=== PATIENT | female | born 1995 | race Caucasian/White ===

== ENCOUNTER → 2018-08-10 17:25 | Observation (INO) ==
[2018-08-10 12:58] LABS: Bilirubin,Urine Negative (Negative); Blood,Urine Negative (Negative); Clarity,Urine Clear (Clear); Color,Urine Dark Yellow (Yellow); Glucose,Urine (UA) Normal (Normal); Ketones,Urine 40 mg/dL (Negative); Leukocyte Esterase,Urine Negative (Negative); Nitrite,Urine Negative (Negative); Protein,Urine Negative (Neg-Trace); Specific Gravity,Urine 1.025 (1.010-1.025)
[2018-08-10 13:05] LABS: Amphetamine Screen,Urine Negative ng/mL (Cutoff=1000); Barbiturate Screen,Urine Negative ng/mL (Cutoff=200)
[2018-08-10 13:09] LABS: Benzodiazepines Screen,Urine Negative ng/mL (Cutoff=300); Cannabinoid Screen,Urine Positive ng/mL (Cutoff = 50); Cocaine Screen,Urine Negative ng/mL (Cutoff= 300); Opiate Screen,Urine Negative ng/mL (Cutoff=300); Phencyclidine Screen,Urine Negative ng/mL (Cutoff=25)
--- NOTE | 2018-08-10 13:54 | OB/GYN Progress Note ---
Date of Encounter: 08/10/18 Time of Encounter: 13:20 - Assessment and Plan (1) 33 weeks gestation of Current Visit: No Status: Acute (2) NST (non-stress test) reactive Current Visit: No Status: Acute (3) uterine contractions in third trimester, antepartum Current Visit: No Status: Acute SVE unchanged since last triage visit. Pt has already received celestone injections. UA positive for 40 ketones. Contractions have improved with IV hydration. Zofran given for nausea. Will PO challenge. Pt denies any diarrhea since arrival to triage. Will continue to monitor. If pt able to tolerate PO fluids and contractions continue to improve, anticiapte discharge home. Subjective - Subjective Interval history: 22 year-old presenting at 33w4d with c/o nausea, vomiting, diarrhea, and contractions. She was seen for contractions last week and received "a pill" to stop them. The pill did not work but she only dilated to 2cm and then stopped per pt report. She did receive 2 doses of celestone and was discharged home. Last evening she started feeling ill at about midnight with nausea and diarrhea. She then started vomiting at around 0900 this am and has been cramping ever since. She reports the cramps are in her lower back and feel like diarrhea cramps. She has not had any fluids since midnight. Her son was ill with vomiting 2 days ago. No leaking or bleeding. Good FM. Antepartum ROS: movement normal, contractions, no loss of fluid, no vaginal bleeding Objective - Exam FHR: category 1 FHR comments: 140 BPM and reactive Auscultation: bilateral: normal Abdomen: Present: soft, gravid Uterus: Absent: tenderness Cervical dilation: 2 per RN Cervix effacement: 80 station: -2 - Labs Labs: Abnormal lab results 40 mg/dL (Negative) H 08/10/18 12:25 2.0 mg/dL (Normal) H 08/10/18 12:25 U Marijuana (THC) Screen Positive ng/mL (Cutoff = 50) H 08/10/18 12:25
[~2018-08-10 17:25] MED LIST: Ondansetron 4 MG/2 ML VIAL IVP PRN; Ringers Solution, Lactated 1,000 ML IVC ONE; Ringers Solution, Lactated 1,000 ML ONE; Terbutaline 1 MG/ML VIAL SQ ONE
== END | disposition home or self-care (01) ==
LOC: 1NENULAB
PROVIDERS: ADMIT Registered Nurse; ATTEND Registered Nurse

== ENCOUNTER → 2018-09-02 22:27 | Observation (INO) ==
--- NOTE | 2018-09-02 22:24 | Discharge Summary ---
Date of Encounter: 09/02/18 Time of Encounter: 22:24 - Discharge Diagnosis (1) 36 weeks gestation of Priority: Primary Status: Acute Comments: admitted for observation (2) NST (non-stress test) reactive Priority: Secondary Status: Acute Comments: FHR 125 bpm moderate variability +15x15 accels no decels noted. irregular contractions. Cat. 1 tracing - Discharge Medications Allergies/Adverse Reactions: Allergy/AdvReac Type Severity Reaction Status Date / Time No Known Allergies Allergy Verified 09/02/18 19:00 Date of admission: 09/02/18 18:34 Discharging clinician: Ying Bustamante Anticipated date of discharge: 09/02/18 - Patient Status Disposition: Home, Self-Care Condition: Good Functional capacity at discharge: independent ambulation - Discharge Instructions Follow Up With: Yoly Deleon MD [Partnered Physician] - Additional Instructions: LABOR AND DELIVERY DISCHARGE INSTRUCTIONS Signs and Symptoms to be Reported to your Doctor Immediately: * Sudden gush, continuous or intermittent lead of fluid from vagina (note the time of gush and color of fluid) * Onset of bright red vaginal bleeding with or without pain (if you had a vaginal exam during this visit you may notice some dark red spotting. This is normal.) * Lower abdominal cramping or backache that is premenstrual-like feeling. * More than 6 contractions in one hour. * Burning during urination, having to urinate more frequently or pain in your mid-back. * A change in the baby's activity. This could be an increase or decrease in activity. * Severe headache which does not go away with tylenol. * Sudden swelling in the face, hands, arms and/or legs. * Upper abdominal pain - sometimes associated with heartburn or nausea and is not relieved by Maalox, Mylanta or Tums. * Dizziness or blurred vision or visual disturbances (seeing stars/lights). * Kick Counts One hour after a meal, lay down on one side in a quiet place. Count the number of opal the baby moves during an hour. If less than 6 movements, notify your physician. Diet: *Force fluids - 8-10 tall glasses of fluid per day. May include popsicles and jello. 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 Deleon. Patient reports good movement, denies LOF. Patient states she was dilated 4cm when she seen Dr. Deleon. After almost 4 hours of observation no cervical change was made. Patient educated on True verses false labor and pain interventions. Patient denies any questions or concerns. Time Attestation: Total time spent providing and/or coordinating discharge services: Time Spent: Less than 30 minutes Exam - Constitutional General appearance IM: A&O X 3, pleasant, answers questions appropriately - Respiratory Respiratory exam: Present: CTAB - Cardiovascular Cardiovascular exam IM: Present: RRR, +S1, +S2 - Other Additional findings: SVE per RN 4/70/-2 no cervical change after 2 hours. FHR 125 bpm moderate variability +15x15 accels no decels noted. contractions noted now irregular. Cat. 1 tracing
== END | disposition home or self-care (01) ==
LOC: 1NENULAB
PROVIDERS: ADMIT Advanced Practice Midwife; ATTEND Advanced Practice Midwife

== ENCOUNTER 2018-09-12 10:08 | Inpatient (IN) ==
[2018-09-12] MEDS ORDERED: Lidocaine 1% 20 ML MDV INFILT PRN (10:47)
[2018-09-12] MEDS ORDERED: Famotidine 20 MG/2 ML VIAL IVP PRN (10:47)
[2018-09-12] MEDS ORDERED: Naloxone 0.4 MG/ML INJ IVP PRN ×2 (10:47→15:22)
[2018-09-12] MEDS ORDERED: Ondansetron 4 MG/2 ML VIAL IVP PRN ×2 (10:47→15:22)
[2018-09-12] MEDS ORDERED: *HR* Nalbuphine 10 MG/ML AMPUL IVP PRN (10:47)
[2018-09-12] MEDS ORDERED: Metoclopramide 10 MG/2 ML VIAL IVP PRN (10:47)
[2018-09-12] MEDS ORDERED: Ringers Solution, Lactated 1,000 ML IVC SCH (11:00)
[2018-09-12] MEDS ORDERED: Oxytocin 20 units/ LR 1000 mL 20 UNIT/1,000 ML BAG IVC SCH ×2 (11:00→23:57)
[2018-09-12 13:25] LABS: Basophils % 0.2 %; Eosinophils # 0.1 K/mcL (0.0-0.6); Hemoglobin 9.7 g/dL (11.5-15.4); Immature Granulocytes % 0.4 % (0-4); Lymphocytes # 2.1 K/mcL (0.6-4.6); Lymphocytes % 22.2 %; Mean Corpuscular HGB Conc 32.3 g/dL (31.6-35.5); Mean Corpuscular Hemoglobin 24.8 pg (28.0-33.3); Mean Corpuscular Volume 76.7 fL (83.0-100.0); Mean Platelet Volume 11.1 fL (9.4-12.4); Monocytes # 0.5 K/mcL (0.0-1.3); Monocytes % 4.9 %; Neutrophils # 6.7 K/mcL (1.6-8.9); Platelet Count 221 K/mcL (140-400); Red Blood Count 3.91 M/mcL (3.82-4.97); Red Cell Distribution Width 14.3 % (11.5-14.5); Segmented Neutrophils % 71.3 %; White Blood Count 9.4 K/mcL (4.3-11.1)
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
[2018-09-12] MEDS ORDERED: Ropivacaine/PF 0.2% 20 ML VIAL EP ONE (15:22)
[2018-09-12] MEDS ORDERED: *HR* FentaNYL (PF) 100 MCG/2 ML VIAL EP ONE (15:22)
[2018-09-12] MEDS ORDERED: EPHEDrine 50 MG/ML VIAL IVP PRN (15:22)
[2018-09-12] MEDS ORDERED: Epidural Premix (fent/bupiv) 110 ML EP SCH (15:30)
[2018-09-12] MEDS ORDERED: Epidural Premix (fent/bupiv) 110 ML EP ONE (15:50)
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
[2018-09-12] MEDS ORDERED: Ringers Solution, Lactated 1,000 ML ONE (16:27)
--- NOTE | 2018-09-12 16:53 | Anesthesia Procedures ---
Date of Encounter: 09/12/18 Time of Encounter: 16:21 Procedures: Anesthesia - Epidural/Spinal Patient ID/Chart reviewed: Yes Patient examined: Yes OB Eval: : 2 OB Eval: Dilated at (cm): 1 OB Eval: Contractions: Non-stressed pattern Consent Obtained: Yes Supplemental Oxygen: None/Room Air Site Prep: Aseptic Technique, Sterile prep and drape, 0.5% Chlorhexidine/Alcohol Patient position: upright Local Anesthetic: Lidocaine 1% Amount of Local Anesthetic used: 2 Touhy Needle Gauge: 18 Touhy Needle Depth (cm): 7 Catheter Depth at Skin (cm): 12 Test Dose (1.5% Lido + Epi): Volume given (mls): 3 Test Dose Result: Negative Loading Dose: Other: 10ml from solution Loading Dose Administered: Thru Catheter Infusion Med: 0.125% Bupivacaine w/ 2 mcg/ml Fentanyl Infusion Rate (mls/hr): [address]: Tegaderm, Tape Interspace Used: L3-L4 Loss of Resistance (KHOA): Yes (saline) Blood: No CSF: Yes (with 25g purposeful ) Paresthesia: No Procedure: vss though out required small bolus of [place]arien total doses 150mcg., FHR stable per RN's
--- NOTE | 2018-09-12 17:17 | OB Labor Progress Note ---
Date of Encounter: 09/12/18 Time of Encounter: 17:16 Labor Progress Note - Subjective Subjective: Patient resting comfortably with epidural in place. - Cervix Cervix: 8/100/-1 - Heart Tones Heart Tones: FHR 120 bpm, moderate variability, +15x15 accels, early decels. - [place]: Q 2-3 1/2 min - Interventions Interventions: SVE - Plan Physician notified: Yes Physician notified details: Dr. Jones aware of SVE Plan: Continue Pitocin augmentation Anticipate
--- NOTE | 2018-09-12 20:47 | OB/GYN Procedure Note ---
Delivery - Delivery Date: 09/12/18 Provider: Haydee Thomas Delivery induction: none Delivery augmentation: pitocin Delivery monitor: external FHT, external uterine Anesthesia: epidural Quantitated Blood Loss: 100 - (s) A Delivery Date: 09/12/18 Delivery Time: 20:04 Presentation: vertex Position: IVANNA Route of delivery: Gender: Female Viability: Viable at 1 minute: 8 at 5 mins: 9 Specimens collected: cord blood Placenta: spontaneous Cord: 3 umbilical vessels - Repair Episiotomy: none Laceration Description: Perineal - 1st Degree - Complications Delivery complications: none Delivery comments: Called to room for patient feeling intense pressure. I was gowned and gloved with Guillermo Cisneros, PGY1, and together spontaneously delivered of viable female over first-degree perineal laceration, repaired with 3-0 Vicryl. Infant placed on maternal abdomen for drying and stimulation. Cord clamped and cut after pulsation ceased. Spontaneous delivery of intact placenta, EBL 100 mL's. No nuchal cord, shoulder dystocia, or meconium encountered. Mother and in kangaroo care for 2 hour recovery. - Disposition Mom disposition: stable in LDR [place] disposition: stable in LDR
[2018-09-12] MEDS ORDERED: Lanolin 7 G OINT...G. TP PRN (23:57)
[2018-09-12] MEDS ORDERED: Benzocaine/Menthol 56 GM AEROSOL SPRAY TP PRN (23:57)
[2018-09-12] MEDS ORDERED: Rho Immune Globulin 1,500 UNIT SYRINGE IM PRN (23:57)
[2018-09-12] MEDS ORDERED: Acetaminophen 325 MG TABLET PO PRN (23:57)
[2018-09-13] MEDS: Ibuprofen 600 MG TABLET PO PRN ×2 (00:25→08:05)
[2018-09-13 08:38] VITALS: BP 135/87
[2018-09-13] MEDS ORDERED: Prenatal Vit/FA 1 EACH TABLET PO SCH (09:00)
[2018-09-13 09:15] LABS: Basophils % 0.2 %; Eosinophils % 0.3 %; Hematocrit 29.5 % (35.3-44.9); Hemoglobin 9.1 g/dL (11.5-15.4); Immature Granulocytes % 0.4 % (0-4); Lymphocytes # 2.5 K/mcL (0.6-4.6); Lymphocytes % 19.7 %; Mean Corpuscular HGB Conc 30.8 g/dL (31.6-35.5); Mean Corpuscular Hemoglobin 23.7 pg (28.0-33.3); Mean Corpuscular Volume 76.8 fL (83.0-100.0); Mean Platelet Volume 11.3 fL (9.4-12.4); Monocytes # 0.6 K/mcL (0.0-1.3); Monocytes % 4.9 %; Neutrophils # 9.4 K/mcL (1.6-8.9); Platelet Count 178 K/mcL (140-400); Red Blood Count 3.84 M/mcL (3.82-4.97); Red Cell Distribution Width 14.3 % (11.5-14.5); Segmented Neutrophils % 74.5 %; White Blood Count 12.6 K/mcL (4.3-11.1)
--- NOTE | 2018-09-13 09:28 | Discharge Summary ---
Date of Encounter: 09/13/18 Time of Encounter: 09:25 - Discharge Diagnosis (1) Vaginal delivery Priority: Primary Status: Acute Comments: Continue routine care discharge home today follow up with Dr. Calderon in 4-6 weeks. - Discharge Medications Prescriptions: New Ibuprofen [Motrin] 600 mg PO Q6HR PRN tablet PRN Reason: Cramping Benzocaine/Menthol [place] [Dermoplast [place]] 1 appl TP QID PRN aerosol PRN Reason: See Comments Home Medications: Benzocaine/Menthol [place] [Dermoplast [place]] 1 appl TP QID PRN aerosol 09/13/18 [Rx] Ibuprofen [Motrin] 600 mg PO Q6HR PRN tablet 09/13/18 [Rx] Allergies/Adverse Reactions: Allergy/AdvReac Type Severity Reaction Status Date / Time No Known Allergies Allergy Verified 09/02/18 19:00 Data Procedures and tests throughout hospitalization: Laboratory Tests 09/12/18 09/12/18 09/13/18 11:30 20:31 08:37 WBC 9.4 12.6 H RBC 3.91 3.84 Hgb 9.7 L 9.1 L Hct 30.0 L 29.5 L MCV 76.7 L 76.8 L MCH 24.8 L 23.7 L MCHC 32.3 30.8 L RDW 14.3 14.3 Plt Count 221 178 MPV 11.1 11.3 Immature Gran % 0.4 0.4 Seg Neutrophils % 71.3 74.5 Lymphocytes % 22.2 19.7 Monocytes % 4.9 4.9 Eosinophils % 1.0 0.3 Basophils % 0.2 0.2 Neutrophils # 6.7 9.4 H Lymphocytes # 2.1 2.5 Monocytes # 0.5 0.6 Eosinophils # 0.1 0.0 Basophils # 0.0 0.0 Baby's Blood Type A RH NEGATIVE Mother's Blood Type A RH NEGATIVE Rhogam Indicated NO Labs on day of discharge: Labs from last 24 hours 09/13/18 09/12/18 09/12/18 08:37 20:31 11:30 WBC 12.6 H 9.4 RBC 3.84 3.91 Hgb 9.1 L 9.7 L Hct 29.5 L 30.0 L MCV 76.8 L 76.7 L MCH 23.7 L 24.8 L MCHC 30.8 L 32.3 RDW 14.3 14.3 Plt Count 178 221 MPV 11.3 11.1 Immature Gran % 0.4 0.4 Seg Neutrophils % 74.5 71.3 Lymphocytes % 19.7 22.2 Monocytes % 4.9 4.9 Eosinophils % 0.3 1.0 Basophils % 0.2 0.2 Neutrophils # 9.4 H 6.7 Lymphocytes # 2.5 2.1 Monocytes # 0.6 0.5 Eosinophils # 0.0 0.1 Basophils # 0.0 0.0 Baby's Blood Type A RH NEGATIVE Mother's Blood Type A RH NEGATIVE Rhogam Indicated NO Date of admission: 09/12/18 10:08 Primary care physician: PCP NONE Consults: 09/12/18 23:57 Consult to Shot Blaster [CONS] Routine Comment: Vaginal delivery, consult needed Discharging clinician: Ying Bustamante Anticipated date of discharge: 09/13/18 - Patient Status Disposition: Home, Self-Care Condition: Good Functional capacity at discharge: independent ambulation Overall status at discharge: patient is back to baseline - Discharge Instructions Follow Up With: NONE,PCP [Primary Care Provider] - Gary Calderon MD [Partnered Physician] - - Diet and Activity Activity: increase activity as tolerated Diet: regular diet Hospital Course Reason for admission: rupture of membranes Delivery: Episiotomy: none Laceration: 1st degree Other procedures: none complications: none Discharge diagnosis: IUP at term delivered [place] baby: female (bottle feeding) Time Attestation: Total time spent providing and/or coordinating discharge services: Time Spent: Less than 30 minutes Exam - Constitutional Vitals: Temp Pulse Resp BP Pulse Ox 97.6 F 66 16 135/87 98 09/13/18 08:36 09/13/18 08:36 09/13/18 08:36 09/13/18 08:36 09/13/18 08:36 General appearance IM: A&O X 3, pleasant, answers questions appropriately - Respiratory Respiratory exam: Present: CTAB - Cardiovascular Cardiovascular exam IM: Present: RRR, +S1, +S2 - GI/Abdominal GI/Abdominal exam IM: normal bowel sounds - Uterine Tone: Firm Uterus Position: At Umbilicus, Midline - Extremities Exam Extremities exam IM: Present: full ROM, normal capillary refill, normal inspection - Neurological Exam Neurological exam: alert, oriented X3, reflexes normal
== END 2018-09-13 22:00 | disposition home or self-care (01) | DRG 807 ==
LOC: 1NENULAB → OBSVTOIN 10:08 → 1NENUOBS 23:51
PROVIDERS: ADMIT Registered Nurse; ATTEND Registered Nurse

== ENCOUNTER 2020-01-28 17:48 | Inpatient (IN) ==
[2020-01-28 18:59] LABS: Basophils % 0.3 %; Eosinophils % 0.1 %; Hematocrit 40.5 % (35.3-44.9); Hemoglobin 12.9 g/dL (11.5-15.4); Immature Granulocytes % 0.4 % (0-4); Lymphocytes % 8.9 %; Mean Corpuscular HGB Conc 31.9 g/dL (31.6-35.5); Mean Corpuscular Hemoglobin 24.6 pg (28.0-33.3); Mean Corpuscular Volume 77.1 fL (83.0-100.0); Mean Platelet Volume 10.3 fL (9.4-12.4); Monocytes # 0.4 K/mcL (0.0-1.3); Monocytes % 3.8 %; Platelet Count 262 K/mcL (140-400); Red Blood Count 5.25 M/mcL (3.82-4.97); Segmented Neutrophils % 86.5 %; White Blood Count 11.5 K/mcL (4.3-11.1)
[2020-01-28 19:07] LABS: Acetaminophen < 10 mcg/mL (10-20); Alanine Aminotransferase 28 Units/L (7-52); Albumin 4.7 g/dL (3.5-5.7); Albumin/Globulin Ratio 1.5 (1.1-2.2); Alkaline Phosphatase 60 Units/L (34-104); Aspartate Amino Transferase 24 Units/L (13-39); BUN/Creatinine Ratio 12 (6-26); Bilirubin,Direct 0.1 mg/dL (0.0-0.2); Bilirubin,Indirect 0.3 mg/dL (0.0-1.0); Bilirubin,Total 0.4 mg/dL (0.3-1.0); Blood Urea Nitrogen 9 mg/dL (6-20); Calcium 9.8 mg/dL (8.6-10.3); Carbon Dioxide 22 mEq/L (23-29); Chloride 109 mEq/L (98-107); Chol/HDL Ratio 2.4 (0-4.9); Cholesterol 131 mg/dL (< 200); Ethanol < 10 mg/dL (Less than 10); Globulin 3.2 g/dL (2.4-3.5); Glucose 99 mg/dL (70-105); HDL Cholesterol 54 mg/dL (40-59); LDL Cholesterol,Calculated 62 mg/dL (< 100); Osmolality,Calculated 293 (280-300); Potassium 3.2 mEq/L (3.5-5.1); Salicylate < 2.5 mg/dL (15.0-30.0); Sodium 142 mEq/L (136-145); Total Protein 7.9 g/dL (6.4-8.9); Triglycerides 74 mg/dL (< 150); eGFR For African Americans > 60 (> 60); eGFR For Non-African Americans > 60 (> 60)
[2020-01-28 19:14] LABS: Bilirubin,Urine Negative (Negative); Blood,Urine Large (Negative); Clarity,Urine Clear (Clear); Color,Urine Yellow (Yellow); Glucose,Urine (UA) Normal (Normal); Hyaline Casts,Urine Many per lpf (None Seen); Ketones,Urine 40 mg/dL (Negative); Leukocyte Esterase,Urine Small (Negative); Mucus,Urine Many per lpf (None-Few); Nitrite,Urine Negative (Negative); Protein,Urine 100 mg/dL (Neg-Trace); Specific Gravity,Urine > 1.030 (1.010-1.025); Squamous Epithelial Cell,Urine Few per hpf (None-Few); WBC,Urine 15-30 per hpf (0-3)
[2020-01-28 19:19] LABS: Thyroid Stimulating Hormone 2.228 mcIU/mL (0.340-5.600)
[2020-01-28 19:49] LABS: Amphetamine Screen,Urine Positive ng/mL (Cutoff=1000); Barbiturate Screen,Urine Negative ng/mL (Cutoff=200); Benzodiazepines Screen,Urine Negative ng/mL (Cutoff=200); Cannabinoid Screen,Urine Negative ng/mL (Cutoff = 50); Cocaine Screen,Urine Negative ng/mL (Cutoff= 300); Opiate Screen,Urine Negative ng/mL (Cutoff=300); Phencyclidine Screen,Urine Negative ng/mL (Cutoff=25)
[2020-01-28] MEDS ORDERED: cephALEXin 500 MG CAPSULE PO STA (19:57)
[2020-01-28] MEDS ORDERED: haloperidoL 5 MG TABLET PO PRN (21:49)
[2020-01-28] MEDS ORDERED: Mag Hydrox/Al Hydrox/Simeth 30 ML UDC PO PRN (21:49)
[2020-01-28] MEDS ORDERED: MOM Conc 10 ML UD.LIQ PO PRN (21:49)
[2020-01-28] MEDS ORDERED: Haloperidol Lactate 5 MG/ML VIAL IM PRN (21:49)
[2020-01-28] MEDS ORDERED: *HR* LORazepam 2 MG/ML VIAL IM PRN (21:49)
[2020-01-28] MEDS ORDERED: Acetaminophen 325 MG TABLET PO PRN (21:49)
[2020-01-28] MEDS ORDERED: *HR* LORazepam 1 MG TABLET PO PRN (21:49)
[2020-01-28] MEDS: traZODone 50 MG TABLET PO PRN (23:16)
[2020-01-28] MEDS: hydrOXYzine pamoate 25 MG CAPSULE PO PRN (23:16)
[2020-01-29] MEDS: cephALEXin 500 MG CAPSULE PO SCH ×2 (08:27→21:28)
[2020-01-29 09:29] LABS: Estimated Average Glucose 117 mg/dl; Hemoglobin A1C 5.7 %
[2020-01-29] MEDS: BuPROPion XL (24 HR) 150 MG TABLET PO SCH (13:33)
[2020-01-29] MEDS: traZODone 50 MG TABLET PO PRN (21:28)
[2020-01-29] MEDS: hydrOXYzine pamoate 25 MG CAPSULE PO PRN (21:28)
[2020-01-30] MEDS: cephALEXin 500 MG CAPSULE PO SCH ×2 (09:23→21:47)
[2020-01-30] MEDS: BuPROPion XL (24 HR) 150 MG TABLET PO SCH (09:23)
[2020-01-31] MEDS: BuPROPion XL (24 HR) 150 MG TABLET PO SCH (08:42)
[2020-01-31] MEDS: cephALEXin 500 MG CAPSULE PO SCH (08:42)
[2020-01-31 09:45] VITALS: BP 119/77
== END 2020-01-31 12:05 | disposition home or self-care (01) | DRG 885 ==
LOC: 1ANU 17:48 → EMEROOARM 17:48 → 1ANU 23:02
PROVIDERS: ADMIT Psychiatry & Neurology Forensic Psychiatry; ATTEND Psychiatry & Neurology Forensic Psychiatry